=== PATIENT | female | born 1935 | race Caucasian/White ===

== ENCOUNTER 2018-06-17 13:27 | Emergency (ER) | payer MEDICARE, OTHER ==
[~2018-06-17] VITALS: Ht 162.6 cm; Wt 86.2 kg
[2018-06-17] MEDS ORDERED: TETANUS/DIPHTHERIA TOX ADULT 0.5 ML SYR ONE (16:15)
[2018-06-17] MEDS ORDERED: TETANUS/DIPHTHERIA TOX ADULT 0.5 ML SYR IM ONE (16:45)
== END 2018-06-17 16:27 | disposition home or self-care (01) ==
LOC: ER 13:27
DX: S61.401A Unspecified open wound of right hand, initial encounter (principal); Y92.008 Other place in unspecified non-institutional (private) residence as the place of occurrence of the external cause; Y93.K9 Activity, other involving animal care
CPT/HCPCS: 90471; 90714; 99283

== ENCOUNTER 2020-09-23 13:12 | Emergency (ER) | payer MEDICARE ==
[~2020-09-23] VITALS: Ht 162.6 cm; Wt 86.2 kg
[2020-09-23] MEDS ORDERED: PREPARATION H R28 GM RC (13:31)
[2020-09-23] MEDS ORDERED: ANUSOL-HC25 MG RC (13:31)
== END 2020-09-23 13:52 | disposition home or self-care (01) ==
LOC: ER 13:43
DX: K64.8 Other hemorrhoids (principal); J44.9 Chronic obstructive pulmonary disease, unspecified; F41.9 Anxiety disorder, unspecified; Z96.653 Presence of artificial knee joint, bilateral
CPT/HCPCS: 99283

== ENCOUNTER 2020-12-20 14:04 | Inpatient (IN) | payer MEDICARE ==
[~2020-12-20] VITALS: Ht 162.6 cm; Wt 86.2 kg
[~2020-12-20 14:04] MED LIST: ANUSOL-HC25 MG RC; PREPARATION H R28 GM RC
[2020-12-20] MEDS ORDERED: SODIUM CHLORIDE 0.9% 500ML 500 ML IV ONE (15:00)
[2020-12-20] MEDS ORDERED: CEFTRIAXONE 1 GM VIAL IV SCH (15:15)
[2020-12-20] MEDS ORDERED: VANCOMYCIN 1GM/NS 250 ML 250 ML IV ONE (15:15)
[2020-12-20 15:44] LABS: BASOPHILS % 0.2 % (0.0-1.0); EOSINOPHILS # (AUTO) 0.5 (0.0-0.4); EOSINOPHILS % 5.6 % (0.0-6.0); HEMATOCRIT 31.9 % (34.2-44.1); LYMPHOCYTES # (AUTO) 1.2 (1.0-3.2); LYMPHOCYTES % 12.1 % (18.0-39.1); MEAN CORPUSCULAR HEMOGLOBIN 19.5 pg (28-32); MEAN CORPUSCULAR HGB CONC 28.2 g/dL (31-35); MEAN CORPUSCULAR VOLUME 69.2 fL (81-99); MONOCYTES % 9.9 % (4.4-11.3); NEUTROPHILS # (AUTO) 6.9 (2.1-6.9); NEUTROPHILS % 71.8 % (38.7-80.0); PLATELET COUNT 315 x10e3/uL (140-360); RED BLOOD COUNT 4.61 x10e6/uL (3.6-5.1); RED CELL DISTRIBUTION WIDTH 18.7 % (11.7-14.4)
[2020-12-20 15:44] LABS: CLARITY,URINE HAZY (CLEAR); COLOR,URINE YELLOW (YELLOW); KETONES,URINE NEGATIVE (NEGATIVE); LEUKOCYTE ESTERASE ,URINE NEGATIVE (NEGATIVE); NITRITE,URINE NEGATIVE (NEGATIVE); PROTEIN,URINE DIPSTICK TRACE (NEGATIVE); URINE UROBILINOGEN 0.2 mg/dL (0.2 - 1)
[2020-12-20 15:46] LABS: AMORPHOUS SEDIMENT,URINE FEW (FEW); BACTERIA,URINE MODERATE /HPF; EPITHELIAL CELLS,URINE MODERATE /LPF; MUCUS,URINE FEW (RARE)
[2020-12-20] MEDS: CEFTRIAXONE 1 GM in SODIUM CHLORIDE 0.9% 50ML 50 ML IV SCH (16:03)
[2020-12-20 16:06] LABS: ANISOCYTOSIS SLIGHT; HYPOCHROMASIA SLIGHT; PLATELET ESTIMATE ADEQUATE; PLATELET MORPHOLOGY COMMENT NORMAL
[2020-12-20 16:07] LABS: MICROCYTOSIS SLIGHT
[2020-12-20 16:18] LABS: ALANINE AMINOTRANSFERASE 10 IU/L (0-55); ALBUMIN 3.8 g/dL (3.5-5.0); ALBUMIN/GLOBULIN RATIO 1.1 (0.8-2.0); ALKALINE PHOSPHATASE 77 IU/L (40-150); ANION GAP 18.9 mmol/L (8-16); BLOOD UREA NITROGEN 15 mg/dL (7-26); BUN/CREATININE RATIO 19 (6-25); CARBON DIOXIDE 24 mmol/L (22-29); CHLORIDE 101 mmol/L (98-107); CREATINE KINASE 37 IU/L (29-168); CREATININE, SERUM 0.81 mg/dL (0.57-1.11); EST GLOMERULAR FILTRATION RATE > 60 ML/MIN (60-); GLUCOSE 94 mg/dL (74-118); MAGNESIUM 1.8 MG/DL (1.3-2.1); POTASSIUM 3.9 mmol/L (3.5-5.1); SODIUM 140 mmol/L (136-145)
[2020-12-20] MEDS ORDERED: ALBUTEROL SULFATE HFA 8GM INHALATION AEROSOL INH PRN (16:30)
[2020-12-20] MEDS ORDERED: MORPHINE SULFATE INJ 2 MG/ML SYR IV PRN (17:30)
[2020-12-20] MEDS ORDERED: ONDANSETRON HCL INJ 2MG/ML 2ML 2 MG/ML VIAL IV PRN (17:30)
[2020-12-20 18:24] VITALS: BP 131/72
[2020-12-20] MEDS: BUDESONIDE/FORMOTEROL 160/4.5MCG INHALER INH SCH (19:00)
[2020-12-20 20:00] VITALS: BP 142/65
[2020-12-20 20:33] VITALS: BP 142/65
[2020-12-20] MEDS: SODIUM CHLORIDE 0.9% 1000ML 1,000 ML IV SCH (21:51)
[2020-12-20] MEDS: LACTOBACILLUS ACIDOPHILUS CAPSULE PO SCH (21:51)
[2020-12-20] MEDS: ACETAMINOPHEN/CODEINE 300MG - 30MG TAB PO SCH (21:52)
[2020-12-20] MEDS: GABAPENTIN 100 MG CAP PO SCH (21:53)
[2020-12-20] MEDS: DOCUSATE SODIUM 100 MG CAP PO SCH (21:53)
[2020-12-20] MEDS: DONEPEZIL HCL 5 MG TAB PO SCH (21:53)
[2020-12-20] MEDS: PRAVASTATIN 20 MG TAB PO SCH (21:54)
[2020-12-20] MEDS: HYDROCORTISONE ACETATE 25 MG/SUPP.RECT SUPP RC SCH (21:54)
[2020-12-20 21:57] LABS: % IRON SATURATION 6 % (15-50); IRON 35 ug/dL (50-170); TOTAL IRON BINDING CAPACITY 571 ug/dL (261-478); TRANSFERRIN 408 mg/dL (180-382)
[2020-12-20 22:39] VITALS: BP 142/65
[2020-12-21] VITALS (8 sets, daily range): BP systolic 101–128; BP diastolic 52–75
[2020-12-21] MEDS: VANCOMYCIN 750MG/NS 150ML IVPB 150 ML IV SCH ×2 (03:00→13:38)
[2020-12-21] MEDS: CEFTRIAXONE 1 GM in SODIUM CHLORIDE 0.9% 50ML 50 ML IV SCH (04:15)
[2020-12-21 06:20] LABS: BASOPHILS % 0.4 % (0.0-1.0); EOSINOPHILS # (AUTO) 0.5 (0.0-0.4); EOSINOPHILS % 7.1 % (0.0-6.0); HEMATOCRIT 27.9 % (34.2-44.1); HEMOGLOBIN 7.9 g/dL (12.0-16.0); LYMPHOCYTES # (AUTO) 1.2 (1.0-3.2); LYMPHOCYTES % 17.5 % (18.0-39.1); MEAN CORPUSCULAR HEMOGLOBIN 19.8 pg (28-32); MEAN CORPUSCULAR HGB CONC 28.3 g/dL (31-35); MEAN CORPUSCULAR VOLUME 70.1 fL (81-99); MONOCYTES # (AUTO) 0.7 (0.2-0.8); NEUTROPHILS # (AUTO) 4.5 (2.1-6.9); NEUTROPHILS % 64.6 % (38.7-80.0); PLATELET COUNT 265 x10e3/uL (140-360); RED BLOOD COUNT 3.98 x10e6/uL (3.6-5.1); RED CELL DISTRIBUTION WIDTH 18.6 % (11.7-14.4)
[2020-12-21 06:43] LABS: ALANINE AMINOTRANSFERASE 8 IU/L (0-55); ALBUMIN 3.1 g/dL (3.5-5.0); ALBUMIN/GLOBULIN RATIO 1.1 (0.8-2.0); ALKALINE PHOSPHATASE 72 IU/L (40-150); ANION GAP 12.4 mmol/L (8-16); BLOOD UREA NITROGEN 12 mg/dL (7-26); BUN/CREATININE RATIO 18 (6-25); CALCIUM 8.2 mg/dL (8.4-10.2); CARBON DIOXIDE 25 mmol/L (22-29); CHLORIDE 108 mmol/L (98-107); CREATININE, SERUM 0.65 mg/dL (0.57-1.11); EST GLOMERULAR FILTRATION RATE > 60 ML/MIN (60-); GLUCOSE 101 mg/dL (74-118); POTASSIUM 3.4 mmol/L (3.5-5.1); SODIUM 142 mmol/L (136-145)
[2020-12-21] MEDS: BUDESONIDE/FORMOTEROL 160/4.5MCG INHALER INH SCH ×2 (06:58→19:00)
[2020-12-21] MEDS: OMEPRAZOLE 20 MG CAP PO SCH (08:23)
[2020-12-21] MEDS: POLYETHYLENE GLYCOL 3350 17 GM PACK PO SCH (08:23)
[2020-12-21] MEDS: ACETAMINOPHEN/CODEINE 300MG - 30MG TAB PO SCH ×2 (08:23→17:00)
[2020-12-21] MEDS: BUPROPION HCL SR 150 MG TAB PO SCH (08:23)
[2020-12-21] MEDS: LACTOBACILLUS ACIDOPHILUS CAPSULE PO SCH ×2 (08:23→17:00)
[2020-12-21] MEDS: SERTRALINE HCL 100 MG TAB PO SCH (08:23)
[2020-12-21] MEDS: GABAPENTIN 100 MG CAP PO SCH ×3 (08:23→20:55)
[2020-12-21] MEDS: SODIUM CHLORIDE 0.9% 1000ML 1,000 ML IV SCH (10:06)
[2020-12-21] MEDS ORDERED: POTASSIUM CHLORIDE 20 MEQ TAB CR PO ONE (14:00)
[2020-12-21] MEDS: IRON SUCROSE 100 MG in SODIUM CHLORIDE 0.9% 100 ML 100 ML IV SCH (14:14)
[2020-12-21] MEDS: HYDROCORTISONE ACETATE 25 MG/SUPP.RECT SUPP RC SCH (20:55)
[2020-12-21] MEDS: PRAVASTATIN 20 MG TAB PO SCH (20:55)
[2020-12-21] MEDS: DONEPEZIL HCL 5 MG TAB PO SCH (20:55)
[2020-12-21] MEDS: DOCUSATE SODIUM 100 MG CAP PO SCH (20:55)
[2020-12-22] VITALS (8 sets, daily range): BP systolic 18–138; BP diastolic 6–69
[2020-12-22] MEDS: VANCOMYCIN 750MG/NS 150ML IVPB 150 ML IV SCH ×2 (02:05→17:27)
[2020-12-22] MEDS: CEFTRIAXONE 1 GM in SODIUM CHLORIDE 0.9% 50ML 50 ML IV SCH (05:24)
[2020-12-22 06:25] LABS: BASOPHILS % 0.6 % (0.0-1.0); EOSINOPHILS # (AUTO) 0.5 (0.0-0.4); EOSINOPHILS % 6.8 % (0.0-6.0); HEMATOCRIT 27.4 % (34.2-44.1); HEMOGLOBIN 7.7 g/dL (12.0-16.0); LYMPHOCYTES # (AUTO) 1.6 (1.0-3.2); LYMPHOCYTES % 22.3 % (18.0-39.1); MEAN CORPUSCULAR HEMOGLOBIN 20.2 pg (28-32); MEAN CORPUSCULAR HGB CONC 28.1 g/dL (31-35); MEAN CORPUSCULAR VOLUME 71.7 fL (81-99); MONOCYTES # (AUTO) 0.6 (0.2-0.8); MONOCYTES % 8.9 % (4.4-11.3); NEUTROPHILS # (AUTO) 4.2 (2.1-6.9); NEUTROPHILS % 60.8 % (38.7-80.0); PLATELET COUNT 260 x10e3/uL (140-360); RED BLOOD COUNT 3.82 x10e6/uL (3.6-5.1); RED CELL DISTRIBUTION WIDTH 18.9 % (11.7-14.4)
[2020-12-22 06:57] LABS: ANION GAP 11.5 mmol/L (8-16); BLOOD UREA NITROGEN 10 mg/dL (7-26); BUN/CREATININE RATIO 15 (6-25); CALCIUM 8.3 mg/dL (8.4-10.2); CARBON DIOXIDE 25 mmol/L (22-29); CHLORIDE 110 mmol/L (98-107); CREATININE, SERUM 0.65 mg/dL (0.57-1.11); EST GLOMERULAR FILTRATION RATE > 60 ML/MIN (60-); GLUCOSE 106 mg/dL (74-118); MAGNESIUM 1.8 MG/DL (1.3-2.1); POTASSIUM 3.5 mmol/L (3.5-5.1); SODIUM 143 mmol/L (136-145)
[2020-12-22] MEDS: BUDESONIDE/FORMOTEROL 160/4.5MCG INHALER INH SCH ×2 (07:00→19:00)
[2020-12-22 08:28] LABS: ANISOCYTOSIS MODERATE; ELLIPTOCYTE, RBC SLIGHT; HYPOCHROMASIA MODERATE; MICROCYTOSIS MODERATE; OVALOCYTES FEW; PLATELET ESTIMATE ADEQUATE; PLATELET MORPHOLOGY COMMENT NORMAL; RBC MORPHOLOGY COMMENT ABNORMAL
[2020-12-22] MEDS: GABAPENTIN 100 MG CAP PO SCH ×3 (10:12→22:00)
[2020-12-22] MEDS: POLYETHYLENE GLYCOL 3350 17 GM PACK PO SCH (10:12)
[2020-12-22] MEDS: LACTOBACILLUS ACIDOPHILUS CAPSULE PO SCH ×2 (10:13→17:27)
[2020-12-22] MEDS: OMEPRAZOLE 20 MG CAP PO SCH (10:13)
[2020-12-22] MEDS: ACETAMINOPHEN/CODEINE 300MG - 30MG TAB PO SCH ×2 (10:13→17:27)
[2020-12-22] MEDS: SERTRALINE HCL 100 MG TAB PO SCH (10:13)
[2020-12-22] MEDS: BUPROPION HCL SR 150 MG TAB PO SCH (10:13)
[2020-12-22] MEDS: IRON SUCROSE 100 MG in SODIUM CHLORIDE 0.9% 100 ML 100 ML IV SCH (14:13)
[2020-12-22] MEDS: DONEPEZIL HCL 5 MG TAB PO SCH (22:00)
[2020-12-22] MEDS: HYDROCORTISONE ACETATE 25 MG/SUPP.RECT SUPP RC SCH (22:00)
[2020-12-22] MEDS: DOCUSATE SODIUM 100 MG CAP PO SCH (22:00)
[2020-12-22] MEDS: PRAVASTATIN 20 MG TAB PO SCH (22:00)
[2020-12-23] VITALS (9 sets, daily range): BP systolic 118–143; BP diastolic 63–83
[2020-12-23] MEDS: VANCOMYCIN 750MG/NS 150ML IVPB 150 ML IV SCH ×2 (04:15→16:56)
[2020-12-23] MEDS: CEFTRIAXONE 1 GM in SODIUM CHLORIDE 0.9% 50ML 50 ML IV SCH (06:06)
[2020-12-23] MEDS: BUDESONIDE/FORMOTEROL 160/4.5MCG INHALER INH SCH ×2 (07:00→21:18)
[2020-12-23] MEDS: POLYETHYLENE GLYCOL 3350 17 GM PACK PO SCH (09:00)
[2020-12-23] MEDS: OMEPRAZOLE 20 MG CAP PO SCH (09:21)
[2020-12-23] MEDS: GABAPENTIN 100 MG CAP PO SCH ×3 (09:21→20:24)
[2020-12-23] MEDS: LACTOBACILLUS ACIDOPHILUS CAPSULE PO SCH ×2 (09:21→16:56)
[2020-12-23] MEDS: SERTRALINE HCL 100 MG TAB PO SCH (09:22)
[2020-12-23] MEDS: ACETAMINOPHEN/CODEINE 300MG - 30MG TAB PO SCH ×2 (09:22→16:51)
[2020-12-23] MEDS: BUPROPION HCL SR 150 MG TAB PO SCH (09:22)
[2020-12-23] MEDS: COLLAGENASE 5 GM TUBE TP SCH (09:30)
[2020-12-23] MEDS: IRON SUCROSE 100 MG in SODIUM CHLORIDE 0.9% 100 ML 100 ML IV SCH (16:56)
[2020-12-23] MEDS: DONEPEZIL HCL 5 MG TAB PO SCH (20:24)
[2020-12-23] MEDS: PRAVASTATIN 20 MG TAB PO SCH (20:25)
[2020-12-23] MEDS: HYDROCORTISONE ACETATE 25 MG/SUPP.RECT SUPP RC SCH (20:31)
[2020-12-23] MEDS: DOCUSATE SODIUM 100 MG CAP PO SCH (20:59)
[2020-12-23] MEDS ORDERED: BENZONATATE 100 MG CAP PO PRN (22:15)
[2020-12-23] MEDS ORDERED: ALBUTEROL/IPRATROPIUM 3 ML NEB NEB PRN (22:15)
[2020-12-24] VITALS (8 sets, daily range): BP systolic 123–140; BP diastolic 54–103
[2020-12-24] MEDS: CEFTRIAXONE 1 GM in SODIUM CHLORIDE 0.9% 50ML 50 ML IV SCH (06:13)
[2020-12-24 06:37] LABS: BASOPHILS % 0.5 % (0.0-1.0); EOSINOPHILS # (AUTO) 0.5 (0.0-0.4); EOSINOPHILS % 6.9 % (0.0-6.0); HEMOGLOBIN 8.2 g/dL (12.0-16.0); LYMPHOCYTES # (AUTO) 1.6 (1.0-3.2); MEAN CORPUSCULAR HEMOGLOBIN 20.1 pg (28-32); MEAN CORPUSCULAR HGB CONC 27.3 g/dL (31-35); MEAN CORPUSCULAR VOLUME 73.5 fL (81-99); MONOCYTES # (AUTO) 0.8 (0.2-0.8); NEUTROPHILS # (AUTO) 4.6 (2.1-6.9); NEUTROPHILS % 60.9 % (38.7-80.0); PLATELET COUNT 200 x10e3/uL (140-360); RED BLOOD COUNT 4.08 x10e6/uL (3.6-5.1); RED CELL DISTRIBUTION WIDTH 20.4 % (11.7-14.4)
[2020-12-24 06:54] LABS: ANION GAP 13.6 mmol/L (8-16); BLOOD UREA NITROGEN 5 mg/dL (7-26); BUN/CREATININE RATIO 8 (6-25); CALCIUM 8.6 mg/dL (8.4-10.2); CARBON DIOXIDE 28 mmol/L (22-29); CHLORIDE 108 mmol/L (98-107); CREATININE, SERUM 0.64 mg/dL (0.57-1.11); EST GLOMERULAR FILTRATION RATE > 60 ML/MIN (60-); GLUCOSE 96 mg/dL (74-118); MAGNESIUM 2.1 MG/DL (1.3-2.1); POTASSIUM 3.6 mmol/L (3.5-5.1); SODIUM 146 mmol/L (136-145)
[2020-12-24] MEDS: BUDESONIDE/FORMOTEROL 160/4.5MCG INHALER INH SCH ×2 (07:55→18:25)
[2020-12-24] MEDS: POLYETHYLENE GLYCOL 3350 17 GM PACK PO SCH (09:00)
[2020-12-24] MEDS: VANCOMYCIN 750MG/NS 150ML IVPB 150 ML IV SCH ×2 (09:04→17:31)
[2020-12-24] MEDS: ACETAMINOPHEN/CODEINE 300MG - 30MG TAB PO SCH ×2 (09:09→17:31)
[2020-12-24] MEDS: GABAPENTIN 100 MG CAP PO SCH ×3 (09:09→21:21)
[2020-12-24] MEDS: OMEPRAZOLE 20 MG CAP PO SCH (09:10)
[2020-12-24] MEDS: LACTOBACILLUS ACIDOPHILUS CAPSULE PO SCH ×2 (09:10→17:31)
[2020-12-24] MEDS: SERTRALINE HCL 100 MG TAB PO SCH (09:11)
[2020-12-24] MEDS: BUPROPION HCL SR 150 MG TAB PO SCH (09:11)
[2020-12-24] MEDS ORDERED: METHYLPREDNISOLONE SOD SUCC 40 MG/ML VIAL 1ML IV ONE (14:15)
[2020-12-24] MEDS ORDERED: ONDANSETRON HCL 4 MG ORAL DISINTEGRATING TAB PO PRN (16:00)
[2020-12-24] MEDS: COLLAGENASE 5 GM TUBE TP SCH (17:50)
[2020-12-24] MEDS: PRAVASTATIN 20 MG TAB PO SCH (21:21)
[2020-12-24] MEDS: HYDROCORTISONE ACETATE 25 MG/SUPP.RECT SUPP RC SCH (21:21)
[2020-12-24] MEDS: DONEPEZIL HCL 5 MG TAB PO SCH (21:21)
[2020-12-25 05:15] VITALS: BP 112/74
[2020-12-25] MEDS: CEFTRIAXONE 1 GM in SODIUM CHLORIDE 0.9% 50ML 50 ML IV SCH (05:22)
[2020-12-25] MEDS ORDERED: VANCOMYCIN 1GM/NS 250 ML 0 ML ONE (05:35)
[2020-12-25] MEDS: BUDESONIDE/FORMOTEROL 160/4.5MCG INHALER INH SCH (07:00)
[2020-12-25] MEDS: VANCOMYCIN 750MG/NS 150ML IVPB 150 ML IV SCH ×2 (07:19→16:10)
[2020-12-25 08:31] VITALS: BP 120/70
[2020-12-25 08:42] VITALS: BP 120/70
[2020-12-25] MEDS: ACETAMINOPHEN/CODEINE 300MG - 30MG TAB PO SCH ×2 (09:00→15:57)
[2020-12-25] MEDS: POLYETHYLENE GLYCOL 3350 17 GM PACK PO SCH (09:00)
[2020-12-25] MEDS ORDERED: CEFTRIAXON1 GM/50 M2 IV (11:27)
[2020-12-25] MEDS ORDERED: ZOLOFT100 MG PO (11:27)
[2020-12-25] MEDS ORDERED: WELLBUTRIN SR150 MG PO (11:27)
[2020-12-25] MEDS ORDERED: VENTOLIN HFA18 GM INH (11:27)
[2020-12-25] MEDS ORDERED: COLACE100 MG PO (11:27)
[2020-12-25] MEDS ORDERED: PRAVASTATIN SOD20 MG PO (11:27)
[2020-12-25] MEDS ORDERED: ANUCORT-HC25 MG RC (11:27)
[2020-12-25] MEDS ORDERED: SYMBICORT 16010.2 GM INH (11:27)
[2020-12-25] MEDS ORDERED: VANCOMYCIN750 MG/150 IV (11:27)
[2020-12-25] MEDS ORDERED: OMEPRAZOLE20 MG PO (11:27)
[2020-12-25] MEDS ORDERED: ARICEPT5 MG PO (11:27)
[2020-12-25] MEDS ORDERED: TYLENOL # 31 EA PO (11:27)
[2020-12-25] MEDS ORDERED: MIRALAX17 GM PO (11:27)
[2020-12-25] MEDS ORDERED: GABAPENTIN100 MG PO (11:27)
[2020-12-25 12:44] VITALS: BP 118/53
[2020-12-25] MEDS: SERTRALINE HCL 100 MG TAB PO SCH (13:00)
[2020-12-25] MEDS: GABAPENTIN 100 MG CAP PO SCH ×2 (13:00→15:00)
[2020-12-25] MEDS: DOCUSATE SODIUM 100 MG CAP PO SCH ×2 (13:00→15:57)
[2020-12-25] MEDS: BUPROPION HCL SR 150 MG TAB PO SCH (13:00)
[2020-12-25] MEDS: LACTOBACILLUS ACIDOPHILUS CAPSULE PO SCH ×2 (13:00→15:57)
[2020-12-25] MEDS: OMEPRAZOLE 20 MG CAP PO SCH (13:00)
[2020-12-25] MEDS: COLLAGENASE 5 GM TUBE TP SCH (15:57)
[2020-12-25 16:24] VITALS: BP 125/50
== END 2020-12-25 18:40 | DRG 603 ==
LOC: ER 14:40 → ERHOLD 17:34 → MED/SURG3 18:09
PROVIDERS: ADMIT Internal Medicine; ATTEND Internal Medicine
DX: L03.116 Cellulitis of left lower limb (principal); D50.9 Iron deficiency anemia, unspecified; F03.90 Unspecified dementia, unspecified severity, without behavioral disturbance, psychotic disturbance, mood disturbance, and anxiety; J44.9 Chronic obstructive pulmonary disease, unspecified; I10 Essential (primary) hypertension; E03.9 Hypothyroidism, unspecified; Z96.653 Presence of artificial knee joint, bilateral; Z88.1 Allergy status to other antibiotic agents; Z88.8 Allergy status to other drugs, medicaments and biological substances; M54.9 Dorsalgia, unspecified; R53.81 Other malaise; J98.01 Acute bronchospasm; Z20.822 Contact with and (suspected) exposure to COVID-19
CPT/HCPCS: 36415; 71045; 80048; 80053; 80202; 81001; 82550; 82553; 83540; 83605; 83735; 84466; 84484; 85025; 87040; 87086; 93005; 94640; 97139; 99251; 99284; J0696; J1756; J2920; J3370; J7030; J7040; U0002

== ENCOUNTER 2021-05-05 12:17 | Emergency (ER) | payer MEDICARE ==
[~2021-05-05] VITALS: Ht 162.6 cm; Wt 86.2 kg
[~2021-05-05 12:17] MED LIST changes: +ANUCORT-HC25 MG RC; +ARICEPT5 MG PO; +CEFTRIAXON1 GM/50 M2 IV; +COLACE100 MG PO; +GABAPENTIN100 MG PO; +MIRALAX17 GM PO; +OMEPRAZOLE20 MG PO; +PRAVASTATIN SOD20 MG PO; +SYMBICORT 16010.2 GM INH; +TYLENOL # 31 EA PO; +VANCOMYCIN750 MG/150 IV; +VENTOLIN HFA18 GM INH; +WELLBUTRIN SR150 MG PO; +ZOLOFT100 MG PO
[2021-05-05] MEDS ORDERED: Morphine 2mg Syringe 2 MG/ML SYR IV STA (12:30)
[2021-05-05] MEDS ORDERED: ONDANSETRON HCL INJ 2MG/ML 2ML 2 MG/ML VIAL IV STA (12:30)
[2021-05-05] MEDS ORDERED: SODIUM CHLORIDE 0.9% 1000ML 500 ML IV STA (12:30)
[2021-05-05 12:43] LABS: BASOPHILS % 0.5 % (0.0-1.0); EOSINOPHILS # (AUTO) 0.2 (0.0-0.4); EOSINOPHILS % 3.1 % (0.0-6.0); HEMATOCRIT 32.8 % (34.2-44.1); HEMOGLOBIN 9.6 g/dL (12.0-16.0); LYMPHOCYTES # (AUTO) 1.2 (1.0-3.2); LYMPHOCYTES % 15.8 % (18.0-39.1); MEAN CORPUSCULAR HEMOGLOBIN 20.9 pg (28-32); MEAN CORPUSCULAR HGB CONC 29.3 g/dL (31-35); MEAN CORPUSCULAR VOLUME 71.3 fL (81-99); MONOCYTES # (AUTO) 0.6 (0.2-0.8); MONOCYTES % 7.7 % (4.4-11.3); NEUTROPHILS # (AUTO) 5.4 (2.1-6.9); NEUTROPHILS % 72.4 % (38.7-80.0); PLATELET COUNT 251 x10e3/uL (140-360); RED CELL DISTRIBUTION WIDTH 17.7 % (11.7-14.4)
[2021-05-05 13:10] LABS: INR 0.97; PROTHROMBIN TIME 13.3 seconds (11.9-14.5)
[2021-05-05 13:11] LABS: PARTIAL THROMBOPLASTIN TIME 24.2 seconds (23.8-35.5)
[2021-05-05 13:35] LABS: ALANINE AMINOTRANSFERASE 13 IU/L (0-55); ALBUMIN 3.3 g/dL (3.5-5.0); ALKALINE PHOSPHATASE 78 IU/L (40-150); ANION GAP 14.5 mmol/L (8-16); BLOOD UREA NITROGEN 11 mg/dL (7-26); BUN/CREATININE RATIO 14 (6-25); CALCIUM 8.8 mg/dL (8.4-10.2); CARBON DIOXIDE 24 mmol/L (22-29); CHLORIDE 106 mmol/L (98-107); CREATINE KINASE 54 IU/L (29-168); CREATININE, SERUM 0.76 mg/dL (0.57-1.11); EST GLOMERULAR FILTRATION RATE 72 ML/MIN (60-); GLUCOSE 99 mg/dL (74-118); POTASSIUM 3.5 mmol/L (3.5-5.1); SODIUM 141 mmol/L (136-145)
[2021-05-05 14:24] LABS: LIPASE 7 U/L (8-78)
[2021-05-05 15:04] VITALS: BP 126/65
== END 2021-05-05 15:08 | disposition home or self-care (01) ==
LOC: ER 12:30
DX: R10.30 Lower abdominal pain, unspecified (principal); K64.9 Unspecified hemorrhoids; I10 Essential (primary) hypertension; E78.5 Hyperlipidemia, unspecified; E03.9 Hypothyroidism, unspecified; J44.9 Chronic obstructive pulmonary disease, unspecified; K21.9 Gastro-esophageal reflux disease without esophagitis; J45.909 Unspecified asthma, uncomplicated; M54.9 Dorsalgia, unspecified; G89.29 Other chronic pain; Z96.653 Presence of artificial knee joint, bilateral; R94.31 Abnormal electrocardiogram [ECG] [EKG]
CPT/HCPCS: 36415; 71045; 80053; 82550; 82553; 83690; 83880; 84484; 85025; 85610; 85730; 86850; 86900; 93005; 99284; C9113; J2270; J2405; J7030

== ENCOUNTER 2022-05-31 10:59 | Emergency (ER) | payer MEDICARE, OTHER ==
[~2022-05-31] VITALS: Ht 162.6 cm; Wt 86.2 kg
[2022-05-31] MEDS ORDERED: DOXYCYCLINE HY100 M3 PO (11:09)
[2022-05-31] MEDS ORDERED: CEPHALEXIN500 MG PO (11:09)
== END 2022-05-31 11:12 | disposition home or self-care (01) ==
LOC: ER 11:04
DX: S59.811A Other specified injuries right forearm, initial encounter (principal); W54.1XXA Struck by dog, initial encounter; Z96.653 Presence of artificial knee joint, bilateral; I10 Essential (primary) hypertension; J44.9 Chronic obstructive pulmonary disease, unspecified; E03.9 Hypothyroidism, unspecified; E78.5 Hyperlipidemia, unspecified; K21.9 Gastro-esophageal reflux disease without esophagitis; F41.9 Anxiety disorder, unspecified; M54.9 Dorsalgia, unspecified; G89.29 Other chronic pain
CPT/HCPCS: 99282

== ENCOUNTER 2022-09-05 10:33 | Inpatient (IN) | payer MEDICARE ==
[~2022-09-05] VITALS: Ht 154.9 cm; Wt 86.2 kg
[~2022-09-05 10:33] MED LIST changes: +CEPHALEXIN500 MG PO; +DOXYCYCLINE HY100 M3 PO
[2022-09-05] MEDS ORDERED: SODIUM CHLORIDE 0.9% 1000ML 1,000 ML IV STA (11:56)
[2022-09-05 12:47] LABS: BASOPHILS % 0.5 % (0.0-1.0); EOSINOPHILS # (AUTO) 0.4 (0.0-0.4); EOSINOPHILS % 4.9 % (0.0-6.0); HEMATOCRIT 43.7 % (34.2-44.1); LYMPHOCYTES # (AUTO) 1.4 (1.0-3.2); LYMPHOCYTES % 19.2 % (18.0-39.1); MEAN CORPUSCULAR HEMOGLOBIN 29.8 pg (28-32); MONOCYTES # (AUTO) 0.6 (0.2-0.8); MONOCYTES % 7.3 % (4.4-11.3); NEUTROPHILS # (AUTO) 5.1 (2.1-6.9); NEUTROPHILS % 67.7 % (38.7-80.0); PLATELET COUNT 194 x10e3/uL (140-360); RED CELL DISTRIBUTION WIDTH 13.2 % (11.7-14.4)
[2022-09-05 12:56] LABS: INR 0.97; PARTIAL THROMBOPLASTIN TIME 29.2 seconds (23.8-35.5); PROTHROMBIN TIME 13.1 seconds (11.9-14.5)
[2022-09-05 13:04] LABS: ALBUMIN 4.2 g/dL (3.5-5.0); ALBUMIN/GLOBULIN RATIO 1.3 (0.8-2.0); ANION GAP 13.7 mmol/L (8-16); CALCIUM 9.6 mg/dL (8.4-10.2); CREATININE, SERUM 0.72 mg/dL (0.57-1.11); MAGNESIUM 2.1 MG/DL (1.3-2.1); POTASSIUM 3.7 mmol/L (3.5-5.1)
[2022-09-05 13:10] LABS: CREATINE KINASE MB 0.9 ng/mL (0-5.0)
[2022-09-05] MEDS ORDERED: IOPAMIDOL 370 MG/ML 100 ML INFUS..BTL INJ ONE ×2 (13:30→18:54)
[2022-09-05 17:14] LABS: AMPHETAMINES SCREEN,URINE NEGATIVE (NEGATIVE); BENZODIAZEPINES SCREEN,URINE NEGATIVE (NEGATIVE); PHENCYCLIDINE SCREEN,URINE NEGATIVE (NEGATIVE)
[2022-09-05 17:15] LABS: CLARITY,URINE SL CLOUDY (CLEAR); COLOR,URINE YELLOW (YELLOW); KETONES,URINE NEGATIVE (NEGATIVE); LEUKOCYTE ESTERASE ,URINE LARGE (NEGATIVE); NITRITE,URINE POSITIVE (NEGATIVE); PROTEIN,URINE DIPSTICK 1+ (NEGATIVE); URINE UROBILINOGEN 0.2 mg/dL (0.2 - 1)
[2022-09-05 17:24] LABS: BACTERIA,URINE MANY /HPF; EPITHELIAL CELLS,URINE RARE /LPF
[2022-09-05] MEDS ORDERED: ONDANSETRON HCL INJ 2MG/ML 2ML 2 MG/ML VIAL IV PRN (18:30)
[2022-09-05] MEDS: SODIUM CHLORIDE 0.9% 1000ML 1,000 ML IV SCH (19:00)
[2022-09-05] MEDS ORDERED: ACETAMINOPHEN 325 MG TAB PO PRN (21:00)
[2022-09-05] MEDS ORDERED: LORAZEPAM INJ 2 MG/ML VIAL IV PRN (21:00)
[2022-09-05] MEDS ORDERED: ALBUTEROL/IPRATROPIUM 3 ML NEB NEB PRN (21:00)
[2022-09-05 22:47] VITALS: BP 92/66
[2022-09-05 22:57] VITALS: BP 92/66
[2022-09-05] MEDS: DONEPEZIL HCL 5 MG TAB PO SCH (23:10)
[2022-09-05] MEDS: ACETAMINOPHEN/CODEINE 300MG - 30MG TAB PO SCH (23:16)
[2022-09-06] VITALS (8 sets, daily range): BP systolic 92–130; BP diastolic 56–71
[2022-09-06 06:13] LABS: BASOPHILS % 0.6 % (0.0-1.0); EOSINOPHILS # (AUTO) 0.4 (0.0-0.4); EOSINOPHILS % 5.1 % (0.0-6.0); HEMATOCRIT 38.6 % (34.2-44.1); HEMOGLOBIN 12.3 g/dL (12.0-16.0); LYMPHOCYTES # (AUTO) 1.6 (1.0-3.2); LYMPHOCYTES % 22.8 % (18.0-39.1); MEAN CORPUSCULAR HEMOGLOBIN 30.1 pg (28-32); MEAN CORPUSCULAR HGB CONC 31.9 g/dL (31-35); MEAN CORPUSCULAR VOLUME 94.4 fL (81-99); MONOCYTES # (AUTO) 0.6 (0.2-0.8); MONOCYTES % 8.7 % (4.4-11.3); NEUTROPHILS # (AUTO) 4.4 (2.1-6.9); NEUTROPHILS % 62.4 % (38.7-80.0); PLATELET COUNT 180 x10e3/uL (140-360); RED BLOOD COUNT 4.09 x10e6/uL (3.6-5.1)
[2022-09-06 06:42] LABS: ALBUMIN 3.3 g/dL (3.5-5.0); ALBUMIN/GLOBULIN RATIO 1.4 (0.8-2.0); ANION GAP 12.5 mmol/L (8-16); CALCIUM 8.9 mg/dL (8.4-10.2); CREATININE, SERUM 0.67 mg/dL (0.57-1.11); POTASSIUM 3.5 mmol/L (3.5-5.1)
[2022-09-06] MEDS: SODIUM CHLORIDE 0.9% 1000ML 1,000 ML IV SCH (07:24)
[2022-09-06] MEDS: ACETAMINOPHEN/CODEINE 300MG - 30MG TAB PO SCH (08:19)
[2022-09-06] MEDS ORDERED: LORAZEPAM INJ 2 MG/ML VIAL IV PRN (09:30)
[2022-09-06] MEDS: DONEPEZIL HCL 5 MG TAB PO SCH (20:43)
[2022-09-06] MEDS: HEPARIN SOD (PORCINE) 5,000 UNIT/ML VIAL SC SCH (23:18)
[2022-09-07] VITALS (7 sets, daily range): BP systolic 118–125; BP diastolic 56–76
[2022-09-07] MEDS: HEPARIN SOD (PORCINE) 5,000 UNIT/ML VIAL SC SCH ×2 (08:26→21:12)
[2022-09-07] MEDS ORDERED: LORAZEPAM INJ 2 MG/ML VIAL IM ONE (09:30)
[2022-09-07] MEDS: CEPHALEXIN 500 MG CAP PO SCH ×2 (14:00→21:02)
[2022-09-07] MEDS: DONEPEZIL HCL 5 MG TAB PO SCH (21:02)
[2022-09-07] MEDS ORDERED: QUETIAPINE FUMARATE 25 MG TAB PO SCH (21:45)
[2022-09-08] VITALS: BP 107/56
[2022-09-08 04:00] VITALS: BP 136/64
[2022-09-08] MEDS: CEPHALEXIN 500 MG CAP PO SCH ×3 (05:35→21:47)
[2022-09-08 08:58] VITALS: BP 129/93
[2022-09-08] MEDS: HEPARIN SOD (PORCINE) 5,000 UNIT/ML VIAL SC SCH ×2 (09:00→20:37)
[2022-09-08] MEDS ORDERED: LORAZEPAM INJ 2 MG/ML VIAL IM PRN (11:30)
[2022-09-08] MEDS: QUETIAPINE FUMARATE 25 MG TAB PO PRN (12:17)
[2022-09-08 12:36] VITALS: BP 119/67
[2022-09-08 16:37] VITALS: BP 109/83
[2022-09-08 20:00] VITALS: BP 102/80
[2022-09-08] MEDS: DONEPEZIL HCL 5 MG TAB PO SCH (20:33)
[2022-09-08] MEDS ORDERED: QUETIAPINE FUMARATE 25 MG TAB PO SCH (21:00)
[2022-09-09] MEDS: CEPHALEXIN 500 MG CAP PO SCH ×2 (05:19→14:39)
[2022-09-09 05:59] LABS: BASOPHILS # (AUTO) 0.1 (0.0-0.1); EOSINOPHILS # (AUTO) 0.4 (0.0-0.4); EOSINOPHILS % 6.8 % (0.0-6.0); HEMATOCRIT 42.9 % (34.2-44.1); HEMOGLOBIN 13.7 g/dL (12.0-16.0); LYMPHOCYTES # (AUTO) 1.7 (1.0-3.2); LYMPHOCYTES % 27.9 % (18.0-39.1); MEAN CORPUSCULAR HEMOGLOBIN 30.2 pg (28-32); MEAN CORPUSCULAR HGB CONC 31.9 g/dL (31-35); MEAN CORPUSCULAR VOLUME 94.7 fL (81-99); MONOCYTES # (AUTO) 0.5 (0.2-0.8); MONOCYTES % 8.8 % (4.4-11.3); NEUTROPHILS # (AUTO) 3.3 (2.1-6.9); NEUTROPHILS % 55.2 % (38.7-80.0); PLATELET COUNT 199 x10e3/uL (140-360); RED BLOOD COUNT 4.53 x10e6/uL (3.6-5.1); RED CELL DISTRIBUTION WIDTH 13.1 % (11.7-14.4)
[2022-09-09 06:31] LABS: ALBUMIN 3.5 g/dL (3.5-5.0); ANION GAP 14.6 mmol/L (8-16); BILIRUBIN,DIRECT 0.2 mg/dL (0.0-0.5); CALCIUM 9.2 mg/dL (8.4-10.2); CREATININE, SERUM 0.72 mg/dL (0.57-1.11); POTASSIUM 3.6 mmol/L (3.5-5.1)
[2022-09-09 06:55] LABS: THYROID STIMULATING HORMONE 0.711 uIU/mL (0.350-4.940)
[2022-09-09 07:02] LABS: PLATELET ESTIMATE ADEQUATE; PLATELET MORPHOLOGY COMMENT NORMAL; RBC MORPHOLOGY COMMENT NORMAL
[2022-09-09 07:56] VITALS: BP 102/80
[2022-09-09] MEDS: HEPARIN SOD (PORCINE) 5,000 UNIT/ML VIAL SC SCH (09:03)
[2022-09-09] MEDS: QUETIAPINE FUMARATE 25 MG TAB PO PRN (09:04)
[2022-09-09 13:18] VITALS: BP 118/57
[2022-09-09] MEDS ORDERED: ONDANSETRON HCL 4 MG ORAL DISINTEGRATING TAB PO PRN (13:30)
[2022-09-09] MEDS ORDERED: Cephalexin PO (14:55)
[2022-09-09 16:46] VITALS: BP 125/55
== END 2022-09-09 18:40 | DRG 689 ==
LOC: ER 10:39 → ERHOLD 18:35 → MED/SURG2 21:57
PROVIDERS: ADMIT Internal Medicine; ATTEND Internal Medicine
DX: N39.0 Urinary tract infection, site not specified (principal); G93.41 Metabolic encephalopathy; F02.A11 Dementia in other diseases classified elsewhere, mild, with agitation; B96.20 Unspecified Escherichia coli [E. coli] as the cause of diseases classified elsewhere; G30.9 Alzheimer's disease, unspecified; I10 Essential (primary) hypertension; J44.9 Chronic obstructive pulmonary disease, unspecified; E03.9 Hypothyroidism, unspecified; F41.9 Anxiety disorder, unspecified; F32.A Depression, unspecified; K21.9 Gastro-esophageal reflux disease without esophagitis; E78.5 Hyperlipidemia, unspecified; M54.9 Dorsalgia, unspecified; G89.29 Other chronic pain; E86.0 Dehydration; Z96.653 Presence of artificial knee joint, bilateral; Z20.822 Contact with and (suspected) exposure to COVID-19
CPT/HCPCS: 36415; 74177; 80048; 80053; 80076; 80307; 81001; 82550; 82553; 82607; 83690; 83735; 84443; 84484; 85025; 85610; 85730; 87086; 87186; 99252; 99284; J0696; J1644; J2060; J7030; Q9967

== ENCOUNTER 2022-12-14 13:39 | Emergency (ER) | payer MEDICARE ==
[~2022-12-14] VITALS: Ht 154.9 cm; Wt 86.2 kg
[~2022-12-14 13:39] MED LIST changes: +Cephalexin PO
[2022-12-14 15:18] LABS: BASOPHILS # (AUTO) 0.1 (0.0-0.1); BASOPHILS % 0.6 % (0.0-1.0); EOSINOPHILS # (AUTO) 0.2 (0.0-0.4); EOSINOPHILS % 2.2 % (0.0-6.0); HEMOGLOBIN 15.5 g/dL (12.0-16.0); LYMPHOCYTES # (AUTO) 1.9 (1.0-3.2); LYMPHOCYTES % 19.6 % (18.0-39.1); MEAN CORPUSCULAR HEMOGLOBIN 28.1 pg (28-32); MEAN CORPUSCULAR HGB CONC 32.3 g/dL (31-35); MEAN CORPUSCULAR VOLUME 87.1 fL (81-99); MONOCYTES # (AUTO) 0.8 (0.2-0.8); MONOCYTES % 8.3 % (4.4-11.3); NEUTROPHILS # (AUTO) 6.6 (2.1-6.9); NEUTROPHILS % 69.1 % (38.7-80.0); PLATELET COUNT 240 x10e3/uL (140-360); RED BLOOD COUNT 5.51 x10e6/uL (3.6-5.1); RED CELL DISTRIBUTION WIDTH 13.2 % (11.7-14.4)
[2022-12-14 15:37] LABS: ALBUMIN 4.2 g/dL (3.5-5.0); ALBUMIN/GLOBULIN RATIO 1.2 (0.8-2.0); ANION GAP 14.7 mmol/L (8-16); CALCIUM 9.6 mg/dL (8.4-10.2); CREATININE, SERUM 0.84 mg/dL (0.57-1.11); POTASSIUM 3.7 mmol/L (3.5-5.1)
[2022-12-14] MEDS ORDERED: IOPAMIDOL 370 MG/ML 100 ML INFUS..BTL INJ ONE (15:48)
[2022-12-14 16:53] LABS: CLARITY,URINE SL CLOUDY (CLEAR); COLOR,URINE YELLOW (YELLOW); KETONES,URINE 1+ (NEGATIVE); LEUKOCYTE ESTERASE ,URINE NEGATIVE (NEGATIVE); NITRITE,URINE NEGATIVE (NEGATIVE); PROTEIN,URINE DIPSTICK NEGATIVE (NEGATIVE); URINE UROBILINOGEN 0.2 mg/dL (0.2 - 1)
[2022-12-14 17:05] LABS: BACTERIA,URINE MODERATE /HPF; WBC,URINE (MAN) 0-5 /HPF (0-5)
[2022-12-14] MEDS ORDERED: BACTRIM DS TAB1 EACH PO (17:27)
[2022-12-14 18:17] VITALS: O2SAT 99
== END 2022-12-14 18:21 | disposition home or self-care (01) ==
LOC: ER 14:05
DX: K62.5 Hemorrhage of anus and rectum (principal); R10.31 Right lower quadrant pain; I10 Essential (primary) hypertension; J44.9 Chronic obstructive pulmonary disease, unspecified; E03.9 Hypothyroidism, unspecified; Z96.653 Presence of artificial knee joint, bilateral; E78.5 Hyperlipidemia, unspecified; F41.9 Anxiety disorder, unspecified; M54.9 Dorsalgia, unspecified; G89.29 Other chronic pain
CPT/HCPCS: 36415; 74177; 80053; 81001; 83690; 85025; 87086; 87186; 99285; Q9967

== ENCOUNTER 2023-01-03 18:11 | Observation (INO) | payer MEDICARE ==
[~2023-01-03] VITALS: Ht 160 cm; Wt 86.2 kg
[~2023-01-03 18:11] MED LIST changes: +BACTRIM DS TAB1 EACH PO
[2023-01-03] MEDS ORDERED: SODIUM CHLORIDE 0.9% 1000ML 1,000 ML IV ONE (18:30)
[2023-01-03 19:47] LABS: BASOPHILS # (AUTO) 0.1 (0.0-0.1); BASOPHILS % 0.5 % (0.0-1.0); EOSINOPHILS # (AUTO) 0.1 (0.0-0.4); EOSINOPHILS % 0.9 % (0.0-6.0); HEMATOCRIT 44.2 % (34.2-44.1); HEMOGLOBIN 14.4 g/dL (12.0-16.0); LYMPHOCYTES # (AUTO) 1.6 (1.0-3.2); LYMPHOCYTES % 14.9 % (18.0-39.1); MEAN CORPUSCULAR HEMOGLOBIN 28.1 pg (28-32); MEAN CORPUSCULAR HGB CONC 32.6 g/dL (31-35); MEAN CORPUSCULAR VOLUME 86.3 fL (81-99); MONOCYTES # (AUTO) 0.8 (0.2-0.8); MONOCYTES % 7.6 % (4.4-11.3); NEUTROPHILS # (AUTO) 8.3 (2.1-6.9); NEUTROPHILS % 75.8 % (38.7-80.0); PLATELET COUNT 251 x10e3/uL (140-360); RED BLOOD COUNT 5.12 x10e6/uL (3.6-5.1); RED CELL DISTRIBUTION WIDTH 13.5 % (11.7-14.4)
[2023-01-03 19:51] LABS: CLARITY,URINE SL CLOUDY (CLEAR); COLOR,URINE YELLOW (YELLOW); KETONES,URINE TRACE (NEGATIVE); LEUKOCYTE ESTERASE ,URINE NEGATIVE (NEGATIVE); NITRITE,URINE NEGATIVE (NEGATIVE); PROTEIN,URINE DIPSTICK NEGATIVE (NEGATIVE); URINE UROBILINOGEN 0.2 mg/dL (0.2 - 1)
[2023-01-03 20:08] LABS: ALBUMIN 3.8 g/dL (3.5-5.0); ALBUMIN/GLOBULIN RATIO 1.2 (0.8-2.0); ANION GAP 16.5 mmol/L (8-16); BACTERIA,URINE MODERATE /HPF; CALCIUM 9.5 mg/dL (8.4-10.2); CREATININE, SERUM 0.8 mg/dL (0.57-1.11); HYALINE CASTS 0-1 (0-1); MUCUS,URINE FEW (RARE); POTASSIUM 3.5 mmol/L (3.5-5.1); WBC,URINE (MAN) 0-5 /HPF (0-5)
[2023-01-03] MEDS ORDERED: IOPAMIDOL 370 MG/ML 100 ML INFUS..BTL INJ ONE (20:22)
[2023-01-03] MEDS ORDERED: ONDANSETRON HCL INJ 2MG/ML 2ML 2 MG/ML VIAL IV PRN (23:45)
[2023-01-04 06:00] LABS: BASOPHILS # (AUTO) 0.1 (0.0-0.1); BASOPHILS % 0.7 % (0.0-1.0); EOSINOPHILS # (AUTO) 0.2 (0.0-0.4); EOSINOPHILS % 2.9 % (0.0-6.0); HEMATOCRIT 38.1 % (34.2-44.1); HEMOGLOBIN 12.3 g/dL (12.0-16.0); LYMPHOCYTES # (AUTO) 1.9 (1.0-3.2); MEAN CORPUSCULAR HGB CONC 32.3 g/dL (31-35); MEAN CORPUSCULAR VOLUME 86.6 fL (81-99); MONOCYTES # (AUTO) 0.7 (0.2-0.8); MONOCYTES % 8.5 % (4.4-11.3); NEUTROPHILS # (AUTO) 4.8 (2.1-6.9); NEUTROPHILS % 62.6 % (38.7-80.0); PLATELET COUNT 192 x10e3/uL (140-360); RED CELL DISTRIBUTION WIDTH 13.7 % (11.7-14.4)
[2023-01-04 06:18] LABS: ALBUMIN/GLOBULIN RATIO 1.3 (0.8-2.0); CALCIUM 8.2 mg/dL (8.4-10.2); CREATININE, SERUM 0.64 mg/dL (0.57-1.11)
[2023-01-04 08:00] VITALS: BP 108/56; PULSE 69; RESP 16; TEMP 97.7; O2SAT 96
[2023-01-04] MEDS ORDERED: POTASSIUM CHLORIDE 20 MEQ TAB CR PO ONE (10:00)
[2023-01-04] MEDS: SODIUM CHLORIDE 0.9% 1000ML 1,000 ML IV SCH ×3 (10:44→16:54)
[2023-01-04] MEDS ORDERED: Ergocalciferol PO (15:46)
[2023-01-04] MEDS ORDERED: DICLOFENAC SOD100 GM (15:46)
[2023-01-04] MEDS ORDERED: DONEPEZIL HCL10 MG PO (15:46)
[2023-01-04] MEDS ORDERED: BUDESONIDE0.5 MG/2 M NEB (15:46)
[2023-01-04] MEDS ORDERED: Benefiber (15:46)
[2023-01-04] MEDS ORDERED: BREO ELLIPTA 11 EACH INH (15:46)
[2023-01-04] MEDS ORDERED: DOCUSATE CALCI240 MG PO (15:46)
[2023-01-04] MEDS ORDERED: FLONASE ALLERG9.9 ML INH (15:46)
[2023-01-04] MEDS ORDERED: VENTOLIN HFA18 GM INH (15:46)
[2023-01-04] MEDS ORDERED: ALENDRONATE SOD70 MG PO (15:46)
[2023-01-04] MEDS ORDERED: [UNRECOGNIZED DRUG - OTHER] (18:50)
[2023-01-04] MEDS ORDERED: LIDOCAINE 5% RC (18:50)
[2023-01-04] MEDS ORDERED: hydrocortisone 2.5% TOP (18:50)
[2023-01-04] MEDS ORDERED: POTASSIUM CHLO20 ME1 PO (18:50)
[2023-01-04] MEDS ORDERED: IBUPROFEN400 MG PO (18:50)
[2023-01-04] MEDS ORDERED: iron PO (18:50)
[2023-01-04] MEDS ORDERED: FORMOTEROL20 MCG/2 M INH (18:50)
[2023-01-04 20:00] VITALS: BP 110/52; PULSE 59; RESP 18; TEMP 97.2; O2SAT 97
[2023-01-04] MEDS ORDERED: ALBUTEROL SULFATE HFA 8GM INHALATION AEROSOL INH PRN (21:45)
[2023-01-04] MEDS ORDERED: QUETIAPINE FUMARATE 25 MG TAB PO SCH (21:45)
[2023-01-04] MEDS ORDERED: LORAZEPAM 0.5 MG TAB PO PRN (21:45)
[2023-01-04] MEDS ORDERED: ACETAMINOPHEN 325 MG TAB PO PRN (21:45)
[2023-01-04] MEDS ORDERED: QUETIAPINE FUMARATE 25 MG TAB PO PRN (21:45)
[2023-01-05 01:14] VITALS: BP 121/61; PULSE 81; RESP 20; TEMP 97.2; O2SAT 98
[2023-01-05 05:45] VITALS: BP 112/84; PULSE 75; RESP 16; TEMP 98.1; O2SAT 98
[2023-01-05 05:57] LABS: ANION GAP 12.4 mmol/L (8-16); CREATININE, SERUM 0.56 mg/dL (0.57-1.11); POTASSIUM 3.4 mmol/L (3.5-5.1)
[2023-01-05 06:21] LABS: THYROID STIMULATING HORMONE 2.467 uIU/mL (0.350-4.940)
[2023-01-05 08:00] VITALS: BP 116/58; PULSE 73; RESP 17; TEMP 97.9; O2SAT 94
[2023-01-05] MEDS ORDERED: GABAPENTIN 100 MG CAP PO SCH (09:00)
[2023-01-05] MEDS ORDERED: HYDROCORTISONE ACETATE 25 MG/SUPP.RECT SUPP RC SCH (09:00)
[2023-01-05 11:49] VITALS: BP 100/42; PULSE 62; RESP 16; TEMP 98.1; O2SAT 98
[2023-01-05] MEDS ORDERED: DONEPEZIL HCL 5 MG TAB PO SCH (21:00)
== END 2023-01-05 12:08 | disposition home or self-care (01) ==
LOC: ER 18:15 → ERHOLD 23:33 → MED/SURG 01-04 06:25 → INTOOBSV 01-05 07:41 → OBSVTOIN 01-05 07:41
PROVIDERS: ADMIT Internal Medicine; ATTEND Internal Medicine
DX: K62.89 Other specified diseases of anus and rectum (principal); F03.90 Unspecified dementia, unspecified severity, without behavioral disturbance, psychotic disturbance, mood disturbance, and anxiety; R44.3 Hallucinations, unspecified; R53.81 Other malaise; R82.71 Bacteriuria; D32.9 Benign neoplasm of meninges, unspecified; I10 Essential (primary) hypertension; E03.9 Hypothyroidism, unspecified; J44.9 Chronic obstructive pulmonary disease, unspecified; M54.9 Dorsalgia, unspecified; E78.5 Hyperlipidemia, unspecified; F41.9 Anxiety disorder, unspecified; F32.A Depression, unspecified; Z88.1 Allergy status to other antibiotic agents; Z88.0 Allergy status to penicillin; Z88.8 Allergy status to other drugs, medicaments and biological substances; Z79.899 Other long term (current) drug therapy; Z68.33 Body mass index [BMI] 33.0-33.9, adult; Z82.49 Family history of ischemic heart disease and other diseases of the circulatory system
CPT/HCPCS: 36415 ×3; 70450; 74177; 80048; 80053 ×2; 81001; 82607; 83690; 83735; 84443; 84484; 85025 ×2; 93005; 96360; 97116; 97163; 99285; G0378 ×3; J0696; J7030 ×2; Q9967; U0002

== ENCOUNTER 2023-01-10 09:48 | Emergency (ER) | payer MEDICARE ==
[~2023-01-10] VITALS: Ht 160 cm; Wt 86.2 kg
[~2023-01-10 09:48] MED LIST changes: +ALENDRONATE SOD70 MG PO; +BREO ELLIPTA 11 EACH INH; +BUDESONIDE0.5 MG/2 M NEB; +Benefiber; +DICLOFENAC SOD100 GM; +DOCUSATE CALCI240 MG PO; +DONEPEZIL HCL10 MG PO; +Ergocalciferol PO; +FLONASE ALLERG9.9 ML INH; +FORMOTEROL20 MCG/2 M INH; +IBUPROFEN400 MG PO; +LIDOCAINE 5% RC; +POTASSIUM CHLO20 ME1 PO; +[UNRECOGNIZED DRUG - OTHER]; +hydrocortisone 2.5% TOP; +iron PO
[2023-01-10] MEDS ORDERED: SODIUM CHLORIDE 0.9% 500ML 500 ML IV ONE (10:15)
[2023-01-10] MEDS ORDERED: LORAZEPAM INJ 2 MG/ML VIAL IV ONE (10:45)
[2023-01-10] MEDS ORDERED: QUETIAPINE FUMARATE 25 MG TAB PO ONE (10:45)
[2023-01-10 10:47] LABS: BASOPHILS # (AUTO) 0.1 (0.0-0.1); BASOPHILS % 0.7 % (0.0-1.0); EOSINOPHILS # (AUTO) 0.3 (0.0-0.4); EOSINOPHILS % 4.6 % (0.0-6.0); HEMATOCRIT 42.4 % (34.2-44.1); HEMOGLOBIN 13.9 g/dL (12.0-16.0); LYMPHOCYTES # (AUTO) 1.4 (1.0-3.2); LYMPHOCYTES % 19.9 % (18.0-39.1); MEAN CORPUSCULAR HEMOGLOBIN 28.1 pg (28-32); MEAN CORPUSCULAR HGB CONC 32.8 g/dL (31-35); MEAN CORPUSCULAR VOLUME 85.8 fL (81-99); MONOCYTES # (AUTO) 0.5 (0.2-0.8); MONOCYTES % 6.7 % (4.4-11.3); NEUTROPHILS # (AUTO) 4.8 (2.1-6.9); NEUTROPHILS % 67.8 % (38.7-80.0); PLATELET COUNT 215 x10e3/uL (140-360); RED BLOOD COUNT 4.94 x10e6/uL (3.6-5.1); RED CELL DISTRIBUTION WIDTH 14.5 % (11.7-14.4)
[2023-01-10 10:53] LABS: INR 0.92; PARTIAL THROMBOPLASTIN TIME 28.6 seconds (23.8-35.5); PROTHROMBIN TIME 12.8 seconds (11.9-14.5)
[2023-01-10 11:01] LABS: ALBUMIN 3.7 g/dL (3.5-5.0); ALBUMIN/GLOBULIN RATIO 1.2 (0.8-2.0); ANION GAP 15.6 mmol/L (8-16); CALCIUM 9.2 mg/dL (8.4-10.2); CLARITY,URINE CLEAR (CLEAR); COLOR,URINE YELLOW (YELLOW); CREATININE, SERUM 0.65 mg/dL (0.57-1.11); KETONES,URINE NEGATIVE (NEGATIVE); LEUKOCYTE ESTERASE ,URINE NEGATIVE (NEGATIVE); MAGNESIUM 1.9 MG/DL (1.3-2.1); NITRITE,URINE NEGATIVE (NEGATIVE); POTASSIUM 3.6 mmol/L (3.5-5.1); PROTEIN,URINE DIPSTICK NEGATIVE (NEGATIVE); URINE UROBILINOGEN 0.2 mg/dL (0.2 - 1)
[2023-01-10 11:24] LABS: BACTERIA,URINE FEW /HPF; EPITHELIAL CELLS,URINE FEW /LPF; RBC,URINE 0-5 /HPF (0-5); WBC,URINE (MAN) 0-5 /HPF (0-5)
[2023-01-10 12:58] VITALS: O2SAT 98
== END 2023-01-10 14:40 | disposition other institution (70) ==
LOC: ER 09:56
DX: R53.1 Weakness (principal); F03.90 Unspecified dementia, unspecified severity, without behavioral disturbance, psychotic disturbance, mood disturbance, and anxiety; Z91.81 History of falling; Z20.822 Contact with and (suspected) exposure to COVID-19
CPT/HCPCS: 36415; 70450; 71045; 72125; 72170; 73080; 80053; 81001; 82550; 83735; 84443; 84484; 85025; 85610; 85730; 87086; 93005; 99285; J2060; J7040; U0002